=== PATIENT | female | born 1955 | race Caucasian/White ===

== ENCOUNTER 2019-04-03 10:04 | Inpatient (IN) | payer OTHER, BC ==
[~2019-04-03] VITALS: Ht 160 cm; Wt 65.4 kg
[2019-04-03 10:13] VITALS: Ht 160 cm; Wt 65.4 kg
--- NOTE | 2019-04-03 10:20 | NUR ---
PT BIBA WITH CO L FOOT PAIN. PT STATES IT HAS BEEN HURTING FOR A MONTH, BUT OVER THE LAST WEEK IT HAS INCREASED IN PAIN AND SHE IS BARELY ABLE TO AMBULATE DUE TO THE PAIN. PT HAS A BLACK SORE NOTED PROXIMAL TO L GREAT TOE. PT STATES IT STARTED A WEEK AGO. PT HAS HX OF RA AND STATES SHE ALWAYS HAS PAIN AND THE DEFORMITY NOTED TO FEET IS DUE TO HER RA. +PMSC. L FOOT IS WARM TO TOUCH. PT IS AWAKE AND ALERT. BREATHING EVEN AND UNLABORED. PT RECLINING ON GURNEY WITH NAD. WILL CONTINUE TOMONITOR.
--- NOTE | 2019-04-03 10:25 | NUR ---
PT DAUGHTER AT BEDSIDE
--- NOTE | 2019-04-03 10:35 | NUR ---
LAB AT BEDSIDE
[2019-04-03 11:15] LABS: CALCIUM 8.3 mg/dL (8.5-10.1); CARBON DIOXIDE 27.6 mmol/L (21-32); CHLORIDE SERUM 102 mmol/L (98-107); CREATININE SERUM 0.8 mg/dL (0.6-1.0); GFR1 > 60 mL/min; GLUCOSE SERUM 172 mg/dL (74-106); POTASSIUM SERUM 3.7 mmol/L (3.5-5.1); SODIUM SERUM 139 mmol/L (136-145)
[2019-04-03 11:19] LABS: ALBUMIN 3.5 g/dL (3.4-5.0); ALKALINE PHOSPHATASE 107 U/L (46-116); ALT/SGPT 19 U/L (14-59); AST/SGOT 19 U/L (15-37); BASOPHIL % 0.4 % (0-2); BILIRUBIN TOTAL 1.24 mg/dL (0.20-1.00); PLATELET COUNT 197 x10^3mcL (130-400); RED CELL DISTRIBUTION WIDTH 13.1 % (11.5-14.5); TOTAL PROTEIN, SERUM 6.7 g/dL (6.4-8.2); URIC ACID 3.6 mg/dL (2.6-6.0)
[2019-04-03 12:09] LABS: ERYTHROCYTE SED RATE 10 mm/hr (0-30)
[2019-04-03] MEDS ORDERED: PEPCID20 MG PO (12:55)
[2019-04-03] MEDS ORDERED: TOP50 PO (12:55)
[2019-04-03] MEDS ORDERED: LOSARTAN POTASS50 M1 PO (12:55)
[2019-04-03] MEDS ORDERED: PROTONIX40 MG PO (12:55)
[2019-04-03] MEDS ORDERED: PREDNISONE20 MG PO (12:56)
[2019-04-03] MEDS ORDERED: PROMETRIUM100 MG PO (12:56)
[2019-04-03] MEDS ORDERED: PREMARIN0.3 MG TOP (12:57)
[2019-04-03] MEDS ORDERED: MS CONTIN30 M1 PO (12:57)
[2019-04-03] MEDS ORDERED: LYRICA50 M1 PO (12:57)
[2019-04-03] MEDS ORDERED: NOR10T PO (12:58)
[2019-04-03] MEDS ORDERED: QUALITY CHOICE PO (12:58)
--- NOTE | 2019-04-03 13:16 | NUR ---
REPORT GIVEN TO CHINO MTZ ON MS FOR FURTHER CARE OF PT
[2019-04-03 14:06] VITALS: BP 173/89
--- NOTE | 2019-04-03 14:09 | NUR ---
RECEIVED PT FROM ED VIA ARELIS. ORIENTED PT TO ROOM AND SURROUNDINGS. IV NOTED TO LAC PATENT AND INTACT .INSTRUCTED PT ON THE USE OF CALL LIGHT FOR ASSISTANCE. ENDORSED PT TO PRIMARY NURSE CHINO
--- NOTE | 2019-04-03 14:27 | NUR ---
SPOKE WITH SONU FARM MORTGAGE AGENT REGARDING PT LACTIC ACID OF 2.6. PER SONU FARM MORTGAGE AGENT GIVE PT 1L BOLUS OF NORMAL SALINE ONCE. CONFIRMED ORDER TORB.
--- NOTE | 2019-04-03 14:37 | NUR ---
PT SITTING UP IN BED. 1L NS BOLUS INFUSING TO LFA. FLUSHED WELL. NO REDNESS OR SWELLING NOTED.
--- NOTE | 2019-04-03 14:48 | NUR ---
LAB CALLED FOR RESULTS OF INCREASE IN LACTIC ACID FROM 2.2 TO 2.6. NOTIFIED PORTRAIT PAINTER SONU AND 1L BOLUS OF NS INITIATED. WILL CONTINUE TO MONITOR. CALL LIGHT IN REACH, FAMILY AT BEDSIDE.
[2019-04-03 16:47] VITALS: BP 143/78
--- NOTE | 2019-04-03 17:09 | NUR ---
DR AKBAR IN TO EVALUATE PATIENT. PATIENT HAS COMPLAINTS OF PAIN IN BILATERAL FEET PAIN. PRN TORADOL IV ADMINISTERED. FAMILY AT BEDSIDE. WILL AWAIT FOR FURTHER ORDERS. CALL LIGHT IN REACH AT THIS TIME.
--- NOTE | 2019-04-03 18:42 | NUR ---
PATIENT IN BED WITH MILD COMPLAINTS OF PAIN. WALKER PLACED IN ROOM PER DR MCGUIRE. WILL ENDORSE TO ONCOMING SHIFT. CALL LIGHT IN REACH, AT BEDSIDE.
--- NOTE | 2019-04-03 19:10 | NUR ---
PT RECEIVED FROM AM NURSE. PT A/O X4, ABLE TO MAKE NEEDS KNOWN. MED-SURG, DENIES ANY CP/PRESSURE. PULSES PALPABLE, NO EDEMA PRESENT. PT REPORTS EPISODES OF NUMBNESS TO LEFT FOOT; PT ABLE TO WIGGLE TOES AND FEEL SENSATION. BREATHING IS EVEN AND UNLABORED, NO RESP DISTRESS NOTED. ABD SOFT AND NONDISTENDED, DENIES N/V. VOIDS FREELY, BRP/BSC. GENEREALIZED WEAKNESS, PENDING PT EVAL. ERYTHEMA NOTED TO TOES, DARK DISCOLORATION AND SCAB NOTED TO SOLE OF LEFT FOOT, DIVIDEND DEPOSIT ENTRY CLERK. PER AM NURSE, PODIATRY TEAM APPLIED 4X4 DRSG TO LEFT FOOT. PT STATES SHE REMOVED DRSG AND REFUSES TO HAVE NEW DRSG APPLIED. PT DENIES ANY PAIN AT THSI TIME. IV TO LAC, PATENT AND INTACT, SITE WNL. NO ACUTE DISTRESS OBSERVED. BED IN LOWEST SETTING, SIDE RAILS UP X2, CALL LIGHT WITHIN REACH. WILL CONT TO MONITOR.
[2019-04-03 20:13] VITALS: BP 150/84
--- NOTE | 2019-04-03 22:15 | NUR ---
PT C/O 03/05 LEFT FOOT PAIN, PT REFUSED TYLENOL, STATES "DOES NOT HELP WITH PAIN," AND PRN TORADOL NOT DUE AT THIS TIME. DR MAXWELL MADE AWARE, AWAITING ORDERS AT THIS TIME.
--- NOTE | 2019-04-03 22:41 | NUR ---
PT C/O 8/10 LEFT FOOT PAIN, PRN NORCO GIVEN ORDERED. NO ACUTE DISTRESS NOTED. WILL CONT TO MONITOR.
--- NOTE | 2019-04-03 23:43 | NUR ---
PT C/O INSOMNIA, AMBIEN PO GIVEN ORDERED PER DR MAXWELL. NO ACUTE DISTRESS NOTED. WILL CONT TO MONITOR.
[2019-04-04 05:10] VITALS: BP 135/80
--- NOTE | 2019-04-04 06:13 | NUR ---
PT SLEPT WELL THROUGHOUT THE EVENING. BREATHING IS EVEN AND UNLABORED, NO RESP DISTRESS NOTED. PT DENIES HAVING ANY PAIN AT THIS TIME. IVF INFUSING WELL TO [facility], SITE WNL. NO ACUTE CHANGES ENCOUNTERED DURING SHIFT. ALL NEEDS MET AND ANTICIPATED. PT COMPLIANT WITH NURSING CARE. CALL LIGHT WITHIN REACH. WILL ENDORSE CARE TO AM NURSE.
[2019-04-04 06:42] LABS: CALCIUM 7.5 mg/dL (8.5-10.1); CARBON DIOXIDE 26.7 mmol/L (21-32); CHLORIDE SERUM 110 mmol/L (98-107); CREATININE SERUM 0.6 mg/dL (0.6-1.0); GFR1 > 60 mL/min; GLUCOSE SERUM 104 mg/dL (74-106); POTASSIUM SERUM 3.3 mmol/L (3.5-5.1); SODIUM SERUM 144 mmol/L (136-145)
--- NOTE | 2019-04-04 07:32 | NUR ---
PT IN NO ACUTE DISTRESS. CONTINUITY OF CARE ENDORSED TO AM NURSE. ALL QUESTIONS AND CONCERNS ADDRESSED.
--- NOTE | 2019-04-04 07:35 | NUR ---
RECEIVED PATIENT AWAKE/ALERT IN BED, C/O LT FOOT 03/05 PAIN. POC EXPLAINED TO PATIENT. IV TO LFA INTACT AND INFUSING WELL. INFORM PATIENT WILL CHECK ON HER PAIN MED.
--- NOTE | 2019-04-04 07:55 | NUR ---
MEDICATED FOR PAIN WITH TORADOL IVP, CALL LIGHT WITHIN REACH.
[2019-04-04 07:57] LABS: BASOPHIL % 1.1 % (0-2); PLATELET COUNT 176 x10^3mcL (130-400); RED CELL DISTRIBUTION WIDTH 13.1 % (11.5-14.5)
--- NOTE | 2019-04-04 08:00 | NUR ---
PATIENT UP TO BATHROOM AND BACK TO BED REPORT TO RN HAS BM AND VOIDED, C/O 03/05 PAIN TO LT FOOT AND STATED TORADOL DOESN'T WORK, NORCO 1 TAB PO GIVEN. SONU MANAGER WEB SEEN PATIENT AT THIS TIME. ASSISTING PATIENT WITH HER BREAKFAST. CALL LIGHT WITHIN REACH.
[2019-04-04 08:25] VITALS: BP 149/117
--- NOTE | 2019-04-04 08:50 | NUR ---
PATIENT RECEIVED IN BED. ALERT AND ORIENTED X 4. NO SIGNS OF SHORTNESS OF BREATH. PATIENT EXPRESSED GENERALIZED PAIN 7/10. MEDICATED FOR PAIN ACCORDING TO EMAR. PATIENT WALKED TO BATHROOM WITH NO DIFFICULTY. WILL CONTINUE TO MONITOR. CALL LIGHT WITHIN REACH.
--- NOTE | 2019-04-04 11:10 | NUR ---
PATIENT HAD PAIN OF 6/10. MEDICATED WITH SCHEDULED MS CONTIN. NO A/R NOTED. WILL CONTINUE TO MONITOR. FAMILY ARRIVED TO SEE PATIENT.
--- NOTE | 2019-04-04 12:18 | NUR ---
PATIENT BACK FROM BONE SCAN VIA WHEELCHAIR, NO COMPLAINS. SETTLE IN BED. CALL LIGHT WITHIN REACH.
--- NOTE | 2019-04-04 15:55 | NUR ---
Zosyn IVPB administered for patient per MD orders. IV line clear and patent. No SX of infiltration noted. No A/R noted. Family members at bedside. Will continue to monitor. Call light within reach.
--- NOTE | 2019-04-04 16:50 | NUR ---
PATIENT OFF FLOOR VIA WHEELCHAIR TO [facility] AT THIS TIME. IV HEPLOCK AND INTACT NO S/S OF SWELLING NOTED.
[2019-04-04 17:14] VITALS: BP 168/95
--- NOTE | 2019-04-04 18:00 | NUR ---
MEDICATE PAIN FOR LT FOOT PAIN 02/02 WITH NORCO 1 TAB PO. NEEDS MET. CONT TO MONITOR.
--- NOTE | 2019-04-04 18:54 | NUR ---
PATIENT UP TO BATHROOM NO COMPLAINS AT THIS TIME. PATIENT REPORT NO MORE DIARRHEA. CONT TO MONITOR.
--- NOTE | 2019-04-04 19:40 | NUR ---
RECEIVED PT IN BED AWAKE, ALERT,ORIENTED X4. NO SOB ON ROOM AIR. BOWEL SOUNDS ACTIVE. PT W/ BLACK COLORED SKIN DISCOLORATION ON SOLE OF LT FOOT. PULSES STRONG. PT DENIES PAIN AT THIS TIME. W/ IVF NS INFUSING VIA LTFA. CALL LIGHT W/IN REACH.
--- NOTE | 2019-04-04 21:27 | NUR ---
PT REQUESTING FOR SLEEPING PILL. AMBIEN 5 MG PO GIVEN ORDERED.
[2019-04-04 21:33] VITALS: BP 177/99
--- NOTE | 2019-04-04 21:35 | NUR ---
ADVISED PT TO HAVE HER HOME MED (PROGESTERONE) BE BROUGHT TO THE HOSPITAL PER PHARMACY.
[2019-04-04 22:10] VITALS: BP 132/79
--- NOTE | 2019-04-04 22:30 | NUR ---
PT APPEARS TO BE SLEEPING COMFORTABLY.
--- NOTE | 2019-04-05 | NUR ---
PT ASLEEP SOUNDLY. NO S/S OF DISTRESS.
--- NOTE | 2019-04-05 04:47 | NUR ---
PT C/O BACK PAIN 02/02, NORCO 10/325 MG PO GIVEN.
--- NOTE | 2019-04-05 04:55 | NUR ---
INFORMED DR. COX THAT PER PT SHE WAS TOLD THAT DOSAGE OF NORCO WILL BE CHANGED TO 2 TABS ( ). PER PT SHE SPOKE W/ THE PIANO BENCH ASSEMBLER. PT STATED SHE TAKES 2 TABS AT HOME.
--- NOTE | 2019-04-05 05:55 | NUR ---
PT'S DAUGHTER HERE AND ASKED REGARDING PT'S PAIN MGT. TOLD HER THAT THE RESIDENT WAS MADE AWARE OF THE PT'S CONCERN REGARDING THE NORCO . PT'S DAUGHTER SATTED THAT SHE FEELS THAT HER MOTHER IS NOT GETTING THE PROPER PAIN MGT AND SHE WANTS TO CHECK HER OUT. ADVISED PT THAT DOCTOR WILL BE INFORMED SO HE CAN TAKL TO THEM. DR. COX INFORMED.
--- NOTE | 2019-04-05 06:04 | NUR ---
DR. MARQUEZED IN ROOM AND TALKING TO PT AND HER DAUGHTER.
--- NOTE | 2019-04-05 06:15 | NUR ---
AFTER TALKING TO THE RESIDENT PT AND DAUGHTER DECIDED TO LEAVE AMA.
--- NOTE | 2019-04-05 06:20 | NUR ---
PT'S DAUGHTER WALKED TO THE NURSE'S STATION AND ASKED IF IT IS POSSIBLE TO HAVE HER MOTHER TRANSPORTED TO [place] VIA MEDICAL TRANSPORT. [facility] NURSE MADE AWARE AND SPOKE W/ THE PT'S DAUGHTER. DAUGHTER WAS ADVISED TO WAIT FOR THE NURSE PRACTITIONER THIS AM REGARDING THIS MATTER. PT'S DAUGHTER AGREED TO WAIT .
[2019-04-05 06:26] LABS: BASOPHIL % 1.4 % (0-2); PLATELET COUNT 216 x10^3mcL (130-400); RED CELL DISTRIBUTION WIDTH 13.2 % (11.5-14.5)
[2019-04-05 06:30] VITALS: BP 178/100
--- NOTE | 2019-04-05 06:41 | NUR ---
PT MEDICATED W/HER AM DOSE OF TOPROL XL 50 MG PO FOR BP OF 178/100. PAGED DR. MARQUEZED TO INFORM HIM. WAITING FOR HIS CALL BACK.
[2019-04-05 06:50] LABS: CALCIUM 8.4 mg/dL (8.5-10.1); CARBON DIOXIDE 26.8 mmol/L (21-32); CHLORIDE SERUM 107 mmol/L (98-107); CREATININE SERUM 0.7 mg/dL (0.6-1.0); GFR1 > 60 mL/min; GLUCOSE SERUM 85 mg/dL (74-106); POTASSIUM SERUM 3.4 mmol/L (3.5-5.1); SODIUM SERUM 144 mmol/L (136-145)
--- NOTE | 2019-04-05 07:05 | NUR ---
RECIEVED PT RESTING IN BED WITH NO DISTRESS NOTED. PT C/O 8 GEN PAIN, WILL MEDICATE PER EMAR. A/O X4 WITH NO CARVALHO OR DIZZINESS.NS RUNNING AT 50ML/HR IN LFA. INTACT AND PATENT. SAFETY PRECAUTIONS IN PLACE, CALL LIGHT WITHIN REACH, WILL MONITOR.
[2019-04-05 09:30] VITALS: BP 144/88
--- NOTE | 2019-04-05 09:53 | NUR ---
P.T. NOTES ATTEMPTED TO SEE PATIENT FOR P.T., PER DAUGHTER, REFUSED SESSION DUE TO PATIENT NOT FEELING WELL AND HASN'T GOTTEN ANY REST. RN MADE AWARE.
--- NOTE | 2019-04-05 10:00 | NUR ---
PT STABLE, WITH NO DISTRESS NOTED. ASSESMENT COMPLETE AND PAIN MANAGEMENT FOLLOWED THROUGH. SAFETY PRECAUTIONS IN PLACE, CALL LIGHT WITHIN REACH, DAUGHTER AT BEDSIDE, WILL MONITOR.
[2019-04-05 12:41] VITALS: BP 144/88
--- NOTE | 2019-04-05 12:59 | NUR ---
PT STABLE TO DISCHARGE PER MD ORDER. ALL DISCHARGE INSTRUCTIONS AND EDUCATION EXPLAINED TO PT AND SHE AND HER DAUGHTER BOTH VERBALIZE UNDERSTANDING. ALL FORMS SIGNED. IV REMOVED WITH CATHETER INTACT, NO RENDESS OR INFLAMMATION NOTED. ID BAND REMOVED FROM PT. PT ESCORTED DOWN TO LOBBY VIA WC BY ENTRY LEVEL FINANCE AND DAUGHTER AT SIDE.
--- NOTE | 2019-04-05 14:54 | NUR ---
PHYSICAL THERAPY DAILY NOTES CO-SIGN All documentation done by the Dealer [facility] Room for 04/05/19 has been reviewed. I agree with the documentation. Reviewed/Co-Signed by: Muna Landis PT Documentation Done by: MAGDALENA YOUNG PTA
== END 2019-04-05 13:21 | disposition home or self-care (01) | DRG 872 ==
LOC: ED 10:04 → MU 12:40
PROVIDERS: Emergency Medicine; ADMIT Internal Medicine
DX: A41.9 Sepsis, unspecified organism (principal); M00.9 Pyogenic arthritis, unspecified; L03.116 Cellulitis of left lower limb; M10.9 Gout, unspecified; M06.9 Rheumatoid arthritis, unspecified; L85.9 Epidermal thickening, unspecified; R53.1 Weakness; I10 Essential (primary) hypertension; M35.00 Sjogren syndrome, unspecified; Z68.23 Body mass index [BMI] 23.0-23.9, adult
CPT/HCPCS: 97116-GP; G0378; J1885; J2543; J3370; J3490; J7030; J7512; Q0092